=== PATIENT | female | born 1975 | race Caucasian/White ===

== ENCOUNTER → 2020-07-18 | Outpatient (CLI) | payer OTHER ==
--- NOTE | 2020-07-18 11:34 | FL ---
EXAMINATION TYPE: FL barium swallow DATE OF EXAM: 07/18/2020 CLINICAL HISTORY: History of gastroparesis presents with epigastric pain, reflux-like symptoms. Proba ble hiatal hernia. Patient symptoms come and go in severity, patient has been on reflux medication TECHNIQUE: A double contrast esophagram is performed utilizing air and barium. A total of 19 second s of fluoroscopic time was utilized during procedure and 54 images obtained COMPARISON: None FINDINGS: The esophagus shows normal motility and emptying into the stomach. No diverticulum. No intr aluminal mass. Small sliding-type hiatal hernia noted towards end of study. No fixed diverticulum. No stricture. No significant gastroesophageal reflux was seen during real time performance of this stud y. IMPRESSION: Small sliding-type hiatal hernia otherwise unremarkable study.
== END | disposition home or self-care (01) ==
LOC: RADUSWWP 10:51
PROVIDERS: ATTEND Surgery Plastic and Reconstructive Surgery
DX: K44.9 Diaphragmatic hernia without obstruction or gangrene (principal)
CPT/HCPCS: 74220

== ENCOUNTER → 2020-08-07 | Outpatient (CLI) | payer OTHER ==
--- NOTE | 2020-08-07 12:26 | NM ---
EXAMINATION TYPE: NM gastric emptying static DATE OF EXAM: 08/07/2020 COMPARISON: NONE HISTORY: Gastroparesis per order. Diminished appetite with abdominal pain heartburn reflux and nausea per patient. History of hiatal hernia. Following administration of 2.0 mCi Tc 99m Sulfur Colloid with 4 OUNCES OF EGGS, 1/2 PIECE OF TOAST W ITH BUTTER, 6 OUNCES ICE WATER, projection images of the abdomen were obtained 6 minutes post ingesti on. Patient Emptying Values 1 Hour 40 % 2 Hours 76 % 3 Hours 93 % 4 Hours 100 % Gastroesophageal reflux: None on images saved. T1/2 = 74 minutes. Normal range. IMPRESSION: Gastric emptying: No scintigraphic evidence for gastroparesis. Gastric emptying normal percentage values: 30 minutes: <70% of retention (> 30% emptying) suggests abnormally fast emptying. 60 minutes: <90% retention (>10% emptying) is normal; less than 30% retention (>70% emptying) suggest s abnormally rapid emptying. 90 minutes: <65% retention (> 35% emptying) is normal. 120 minutes: <60% retention (> 40% emptying) is normal. 180 minutes: <30% retention (> 70% emptying) is normal. Gastric emptying T-1/2: Solid: The normal range is 60-105 minutes Liquid only: Normal range is 10-45 minutes. Liquid only-children: At 60 minutes, normal range is 44-58 % . Liquid only-infants: At 60 minutes, normal range is 32-64 %. Additional references: Gastric Emptying Scintigraphy [email or web address]://[email or web address]
== END | disposition home or self-care (01) ==
LOC: RADNMMAIN 06:53
PROVIDERS: ATTEND Surgery Plastic and Reconstructive Surgery
DX: K31.84 Gastroparesis (principal)
CPT/HCPCS: 78264; A9541

== ENCOUNTER → 2020-10-30 | Outpatient (CLI) | payer OTHER ==
[2020-10-30 15:37] VITALS: BP 130/79; PULSE 65; RESP 18; TEMP 98.1; BMI 37.4
--- NOTE | 2020-10-30 15:45 | P.PN ---
Subjective Progress Note Date: 10/30/20 DATE OF SERVICE: 10/30/2020 REASON FOR CONSULTATION: Initial bariatric evaluation. HISTORY OF PRESENT ILLNESS: Soumya Noonan is a 45-year-old female who comes with lifelong morbid obesity. She reports long standing history of severe gastroesophageal reflux disease uncontrolled with medications. She has developed comorbidities including [id number] diabetes type 2 as well as gastroparesis. She reports hypertensive heart disease long-standing over 5+ years. She has tried multiple attempts of weight loss unsuccessfully. She presents today for evaluation of gastric bypass for management of her morbid obesity including severe gastroesophageal reflux disease. She presents in consultation to the bariatric center. At height of 5 feet 6 inches, her ideal body weight is 154 pounds. She comes in 232 pounds. Her body mass index is 37.4. She is 78 pounds overweight. PAST MEDICAL HISTORY: 1. Morbid obesity due to excess calories 2. Body mass index of 37.4 3. Chronic obstructive pulmonary disease with asthma 4. Hyperlipidemia 5. Diabetes type 2, [id number] 6. Gastroparesis 7. Hypertensive heart disease 8. Osteoarthritis lower back 9. Irritable bowel syndrome 10. Gastroesophageal reflux disease PAST SURGICAL HISTORY: 1. Adenoidectomy 2. Appendectomy 3. Cholecystectomy 4. Hysterectomy 5. Tonsillectomy 6. Right knee surgery 2 7. Left knee surgery 4 8. Thyroid biopsy 9. Right hand carpal tunnel surgery HOME MEDICATIONS: Home Medications Medication Instructions Recorded Confirmed Albuterol Sulfate 2.5 mg INHALATION Q6H 10/30/20 10/30/20 Albuterol Sulfate [Proair Hfa] 1 - 2 puff INHALATION Q6HR PRN 10/30/20 10/30/20 Atorvastatin [Lipitor] 10 mg PO DAILY 10/30/20 10/30/20 Azelastine HCl 137 mcg NS BID 10/30/20 10/30/20 Benzonatate [Tessalon Perles] 100 mg PO TID PRN 10/30/20 10/30/20 Budesonide-Formot 160-4.5 Mcg 2 puff INHALATION BID 10/30/20 10/30/20 [Symbicort 160-4.5 Mcg Inhaler] Cyclobenzaprine [Flexeril] 5 mg PO TID PRN 10/30/20 10/30/20 Dicyclomine [Bentyl] 20 mg PO QID PRN 10/30/20 10/30/20 Ertugliflozin/Metformin 1 each PO BID 10/30/20 10/30/20 [Segluromet 2.5-500 mg Tablet] Famotidine [Pepcid] 20 mg PO BID 10/30/20 10/30/20 Ibuprofen [Motrin] 600 mg PO Q6HR PRN 10/30/20 10/30/20 Lidocaine 5% Patch [Lidoderm] 1 patch TOPICAL DAILY 10/30/20 10/30/20 Methocarbamol [Robaxin-750] 750 mg PO TID 10/30/20 10/30/20 Omeprazole 20 mg PO BID 10/30/20 10/30/20 Ondansetron Odt [Zofran Odt] 8 mg PO Q8HR PRN 10/30/20 10/30/20 Promethazine Suppository 25 mg RECTAL DAILY 10/30/20 10/30/20 [Phenergan] glipiZIDE [Glucotrol XL] 20 mg PO DAILY 10/30/20 10/30/20 lisinopriL [Zestril] 2.5 mg PO DAILY 10/30/20 10/30/20 metFORMIN HCL [metFORMIN HCL ER] 500 mg PO BID 10/30/20 10/30/20 predniSONE 20 mg PO BID 10/30/20 10/30/20 predniSONE [Deltasone] 20 mg PO DAILY 10/30/20 10/30/20 sitaGLIPtin [Januvia] 100 mg PO DAILY 10/30/20 10/30/20 ALLERGIES: Allergies Allergy/AdvReac Type Severity Reaction Status Date / Time sulfamethoxazole Allergy Rash/Hives Verified 10/30/20 15:24 [From Bactrim] trimethoprim [From Bactrim] Allergy Rash/Hives Verified 10/30/20 15:24 SOCIAL HISTORY: Has current tobacco use FAMILY HISTORY: No family history of ulcerative colitis disease or Crohn's disease. Family history of morbid obesity. No lupus in the family. No reports of stomach or esophageal cancer. REVIEW OF ORGAN SYSTEMS: CONSTITUTIONAL: No fevers or chills. At height of 5 feet 6 inches, her ideal body weight is 154 pounds. She comes in 232 pounds. Her body mass index is 37.4. She is 78 pounds overweight. HEENT: Denies any active troubles with vision or hearing. Has troubles with swallowing. ENDOCRINE: Has diabetes type 2. No hypothyroidism. Has chronic steroid use. CARDIOVASCULAR: Has hyperlipidemia. Has hypertensive heart disease. RESPIRATORY: Has asthma. Has chronic obstructive pulmonary disease. GASTROINTESTINAL: Denies any bright red blood per rectum. No diarrhea. No constipation. Has gastroesophageal reflux disease. Reports irritable bowel syndrome. Has chronic nausea. GENITOURINARY: Denies bladder urgency. No recent blood in urine MUSCULOSKELETAL: Has lower back pain and joint pain. NEURO: No headaches. No seizure disorders. PSYCH: Denies depression. No suicidal ideation. RHEUMATOLOGIC: No lupus. No rheumatoid arthritis. HEMATOLOGIC: Denies any abnormal bleeding or bruising. SKIN: No rash. No skin cancer. PHYSICAL EXAM: VITAL SIGNS: Height 5 foot 6 inches, weight 232 pounds. BMI 37.4 Vital Signs Temp 98.1 F 10/30/20 15:22 Pulse 65 10/30/20 15:22 Resp 18 10/30/20 15:22 BP 130/79 10/30/20 15:22 Pulse Ox GENERAL: Well-developed in no acute distress. HEENT: No scleral icterus. Extraocular movements grossly intact. Hears conversational speech. No nasal drainage. NECK: Supple without lymphadenopathy. CHEST: Nonlabored respirations with equal bilateral excursions. CARDIOVASCULAR: Regular rate and regular rhythm. Distal 2+ pulses. ABDOMEN: Obese, soft, nontender, nondistended. MUSCULOSKELETAL: No clubbing, cyanosis. NEURO: No focal or lateralizing signs. Cranial nerves 2 through 12 grossly within normal limits. PSYCH: Appropriate affect. Alert and oriented to person, place and time. SKIN: Good skin turgor. Well perfused. STUDIES: Esophagram independently reviewed demonstrates no tertiary contractions or presbyesophagus. This is my independent interpretation. REPORT: Esophagram demonstrates small sliding hiatal hernia. Nuclear gastric emptying study demonstrates no evidence of gastroparesis. 100% empty of the stomach identified. ASSESSMENT: 1. Morbid obesity due to excess calories 2. Body mass index of 37.4 3. Chronic obstructive pulmonary disease with asthma 4. Hyperlipidemia 5. Diabetes type 2, [id number] 6. Gastroparesis 7. Hypertensive heart disease 8. Osteoarthritis lower back 9. Irritable bowel syndrome 10. Gastroesophageal reflux disease 11. Tobacco abuse disorder PLAN: 1. Surgical options including a band, gastric bypass, sleeve gastrectomy were described. For the severity of her gastroesophageal reflux disease, gastric bypass was described. 2. The [place] bariatric surgical collaborative data and outcomes calculator were described with surgical options. 3. Recommend a bariatric metabolic panel to evaluate for micro- including macronutrient deficiencies. 4. For history of daytime somnolence, recommend evaluation and treatment for sleep apnea. 5. Dietary surveillance and counseling was reviewed. Increased protein intake over 65 grams daily advised. 6. Will need cardiac risk assessment. 7. Recommend medical risk assessment. 8. Psych assessment per insurance guidelines. 9. Recommend 12-lead EKG. 10. Recommend urine nicotine testing for history of tobacco abuse disorder 11. Recommend urine drug screen 12. She has completed 4 months medical supervised weight loss, recommend completion of at least 6 months medical supervised weight loss. Thank you for this consultation. Objective - Vital Signs Vital signs: Vital Signs Temp 98.1 F 10/30/20 15:22 Pulse 65 10/30/20 15:22 Resp 18 10/30/20 15:22 BP 130/79 10/30/20 15:22 Pulse Ox Intake & Output 10/29/20 10/30/20 10/30/20 18:59 06:59 18:59 Weight 105.233 kg
== END ==
LOC: BARWHC3 14:33
PROVIDERS: ATTEND Surgery Plastic and Reconstructive Surgery
DX: E66.01 Morbid (severe) obesity due to excess calories (principal); J44.9 Chronic obstructive pulmonary disease, unspecified; E78.5 Hyperlipidemia, unspecified; I11.9 Hypertensive heart disease without heart failure; K21.9 Gastro-esophageal reflux disease without esophagitis; K31.84 Gastroparesis; K58.9 Irritable bowel syndrome, unspecified; M47.9 Spondylosis, unspecified; Z68.37 Body mass index [BMI] 37.0-37.9, adult; Z72.0 Tobacco use; Z79.84 Long term (current) use of oral hypoglycemic drugs; E11.43 Type 2 diabetes mellitus with diabetic autonomic (poly)neuropathy; Z79.1 Long term (current) use of non-steroidal anti-inflammatories (NSAID)
CPT/HCPCS: 99211

== ENCOUNTER → 2024-01-10 | Outpatient (CLI) | payer OTHER ==
[2024-01-10 10:58] VITALS: BP 139/66; PULSE 65; RESP 16
--- NOTE | 2024-01-10 15:03 | P.PAINPG ---
PQRS Measure Charge Sheet Comment: HISTORY OF PRESENT ILLNESS: A 48 yr old female w father at side as a referral from Dr Vigil presents today w severe and chronic LBP > 6 mo secondary to DDD, spondylosis and facet arthropathy without myelopathy for evaluation. Pt states pain level is provoked at 9 /10 in intensity, constant, localized in the lower lumbar spine, predominantly axial, burning in character w occasional shooting pain towards the back of the LEs. Pain is provoked by over activity. Pain is alleviated by massage therapy semi weekly x 6 wks in Fall 2022, physician guided home exercises/ stretches daily times weekly since Fall 2022, heat, ice, medications (Tramadol), Bupropion patch topical, repositioning and rest . Oswestry axial pain score at 29. PMH: OA, HTN, Hyperlipidemia, IDDM II, GERD, Asthma PSH: Bariatric Surgery SH: + tobacco use, No ETOH abuse, Cannabis use FH: Non contributory All: See list Meds: See list REVIEW OF ORGAN SYSTEMS: CONSTITUTIONAL: No fevers or chills. No recent weight loss. NEUROLOGICAL: + numbness and tingling along the distal extremities. No seizure disorders or headaches. MUSCULOSKELETAL: + pain PSYCHIATRIC: Denies current depression or suicidal thoughts. Physical Examinations : Constitutional : Cooperative , not in acute distress . Neurologic : Cranial nerve II to XII intact. No focal neurological deficits. Psychiatric : alert & oriented x 3. Matching mood & appropriate affect. Judgment & insight intact. Musculoskeletal : Cervical Spine Motor strength in the deltoid and biceps: Normal right side. Normal Left side Motor strength biceps and the wrist extensors: Normal right side . Normal left side Motor strength in the triceps muscle: Normal right side. Normal left side Deep tendon reflexes: Normal at the biceps. Normal at Brachioradialis. Normal at triceps Vertebral body tenderness to deep palpation over Cervical facet loading test: positive bilaterally Spurling test: positive bilaterally Neck distraction test: positive bilaterally Beni sign: positive bilaterally Lumbar spine Motor strength lower extremities ,thigh and legs 5/5 Right side , 5/5 Left side Deep tendon reflexes : Normal Knee Jerk. Normal Ankle Jerk Vertebral body tenderness over Soto Test positive Lumbar facet Loading Test: positive Right / positive Left Range of motion of the lumbar spine Flexion 30 degrees, extension 10 degrees Straight Leg Raise test: Left/ Right positive at degrees Jaren test: positive right / positive left. Severe tenderness over the Sacroiliac joint on the Right / Left sides Gaenslen test: positive bilaterally Seated flexion test: positive bilaterally. Sacral spine : Severe tenderness over the Sacroiliac joint: right side / left side Range of motion: Flexion of the lumbar spine <60 degrees Range of motion: Extension of the lumbar spine <20 degrees Gaenslen's Test positive Jaren test: positive right side / left side Thigh Thrust Test Sacral Thrust Test Imaging: MRI non contrast of the lumbar spine from 04/12/23 reviewed Assessment/ Plan : Lumbar DDD Recommendation of L TFESI L5-S1 #1. Pt stated she will not have an Epidural as long as it involves steroid. This clinic does not use non- steroidal epidural injections. She may follow up w Dr Vigil to explore additional treatment options. All questions answered. I have spent greater than 30 minutes on patient care today. Dr Robles was available by phone for the evaluation of this patient. The time was used to review the medical records including relevant urine studies and Prescription history (MAPs), review of the available imaging, evaluation and examination of the patient, coordination of care with the medical staff and if applicable referring physicians, as well as creation of the medical record Home Medications: Ambulatory Orders Albuterol Sulfate 2.5 mg INHALATION Q6H 10/30/20 Albuterol Sulfate [Proair Hfa] 1 - 2 puff INHALATION Q6HR PRN 10/30/20 Atorvastatin [Lipitor] 10 mg PO DAILY 10/30/20 Azelastine HCl [Astelin Nasal [place]] 137 mcg NS BID 10/30/20 Benzonatate [Tessalon Perles] 100 mg PO TID PRN 10/30/20 Budesonide-Formot 160-4.5 Mcg [Symbicort 160-4.5 Mcg Inhaler] 2 puff INHALATION BID 10/30/20 Cyclobenzaprine [Flexeril] 5 mg PO TID PRN 10/30/20 Dicyclomine [Bentyl] 20 mg PO QID PRN 10/30/20 Ertugliflozin/Metformin [Segluromet 2.5-500 mg Tablet] 1 each PO BID 10/30/20 Famotidine [Pepcid] 20 mg PO BID 10/30/20 Ibuprofen [Motrin] 600 mg PO Q6HR PRN 10/30/20 Lidocaine 5% Patch [Lidoderm] 1 patch TOPICAL DAILY 10/30/20 Omeprazole 20 mg PO BID 10/30/20 Ondansetron Odt [Zofran Odt] 8 mg PO Q8HR PRN 10/30/20 Promethazine Suppository [Phenergan] 25 mg RECTAL DAILY 10/30/20 glipiZIDE [Glucotrol XL] 20 mg PO DAILY 10/30/20 lisinopriL [Zestril] 2.5 mg PO DAILY 10/30/20 metFORMIN HCL [metFORMIN HCL ER] 500 mg PO BID 10/30/20 methocarbamoL [Robaxin-750] 750 mg PO TID 10/30/20 predniSONE 20 mg PO BID 10/30/20 predniSONE [Deltasone] 20 mg PO DAILY 10/30/20 sitaGLIPtin [Januvia] 100 mg PO DAILY 10/30/20 Controlled Substance Measures - Controlled Substance Measures Is patient prescribed a controlled substance at discharge?: No
== END ==
LOC: PNWHC3 10:24
PROVIDERS: ATTEND Specialist
DX: M47.896 Other spondylosis, lumbar region (principal); M46.1 Sacroiliitis, not elsewhere classified; M51.16 Intervertebral disc disorders with radiculopathy, lumbar region; Z72.0 Tobacco use; Z88.2 Allergy status to sulfonamides; Z88.1 Allergy status to other antibiotic agents
CPT/HCPCS: 99211

== ENCOUNTER → 2024-08-24 | Outpatient (CLI) | payer OTHER ==
--- NOTE | 2024-08-24 09:58 | XR ---
EXAMINATION TYPE: XR chest 2V DATE OF EXAM: 08/24/2024 CLINICAL HISTORY: Preoperative clearance TECHNIQUE: Frontal and lateral views of the chest are obtained. COMPARISON: None FINDINGS: There is no focal air space opacity, pleural effusion, or pneumothorax seen. The cardiac silhouette size is within normal limits. The osseous structures are intact. IMPRESSION: No acute cardiopulmonary process. [facility], , 08/24/2024 9:55 AM
== END | disposition home or self-care (01) ==
LOC: RADXRMAIN 09:43
PROVIDERS: ATTEND Family Medicine
DX: Z01.818 Encounter for other preprocedural examination (principal)
CPT/HCPCS: 71046; 86850; 86900; 86901; 87070

== ENCOUNTER 2024-08-31 10:00 | Day surgery (SDC) | payer OTHER ==
[~2024-08-31 10:00] MED LIST: TRANEXAMIC 1,000 MG/100ML-NACL 1,000 MG in SALINE 1 100ML.BAG IVPB PRN
[2024-08-31] MEDS ORDERED: LIDOCAINE 1% (10MG/ML) FOR IV START INTRADERMA PRN (10:29)
[2024-08-31 10:58] LABS: Glucose,Whole Blood 189 mg/dL (70-110)
[2024-08-31] MEDS: IV FLUID CONTINUATION 1,000 ML IV ONE ×3 (11:00→18:00)
[2024-08-31] MEDS: ACETAMINOPHEN TAB 500 MG TAB PO PRN (11:23)
[2024-08-31] MEDS: GABAPENTIN 300 MG CAP PO PRN (11:23)
[2024-08-31] MEDS: ONDANSETRON 4 MG/2 ML VIAL IVP PRN (11:23)
[2024-08-31] MEDS: LACTATED RINGERS 1,000 ML IV SCH (11:24)
[2024-08-31] MEDS: MIDAZOLAM 2 MG/2 ML VIAL IV ONE (11:31)
[2024-08-31] MEDS: SCOPOLAMINE 1 MG/72 HR PATCH TRANSDERM ONE (11:32)
--- NOTE | 2024-08-31 12:29 | P.HPOR ---
History of Present Illness H&P Date: 08/24/24 .D:Date: 08/24/24 : 10:48am .T:Title: PREOP H1 [facility] [address] [place], [place] [address], [place] [address]| PROVIDER: KEMAL IBARRA DO CLINICAL SUMMARY: Ms. Noonan is a 49-year-old female presenting for pre-operative evaluation for planned C4-6 ACDF due to progressive cervical radiculopathy with documented neurological decline. Her symptoms include constant burning neck pain radiating to bilateral upper extremities, severe migraines (20 days/month), and significant sleep disturbances. Physical exam reveals bilateral upper extremity weakness (4/4+), positive Spurling's sign, positive left-sided Simmons's sign, and C4-6 dermatomal sensory changes. MRI demonstrates C4-5 HNP with moderate central and foraminal stenosis, C5-6 HNP with mild to moderate stenosis, and local kyphotic deformity. Conservative management including medications (Pregabalin, Meloxicam), RFA, nerve blocks, Botox injections, and activity modifications have failed to provide sustained relief. Given the progressive nature of symptoms and failure of conservative measures, surgical intervention with C4-6 ACDF is recommended to prevent further neurological deterioration. DEMOGRAPHICS: Age: 49 year Height: 5'7" Weight: 218 lbs BP:120/90 BMI: 34.14 kg/m2 Occupation: Unemployed CC: cervical pain VAS: 5 HISTORY: Ms. Noonan presents to the office today, 08/23/24, for a pre-operative appointment preceding her C4-6 ACDF. Patient states her pain has been getting worse and more frequent since last visit. In the neck patient reports pain down the neck and across thre shoulders into the bilateral upper extremities. She states the pain is a constant burning sensation. She states she has severe migraines 20 days out of the month. Patient is having severe night time sleep disturbances due to her pain and ongoing symptoms. She notes a painful popping sensation from the neck as well. Patient is currently taking Pregabalin and Meloxicam for her symptoms. She ambulates independently. She has tried multiple different treatments for her migraines including shots, botox, medications, blocks none of which have helped her HAs. She has also tried similar for her neck of which does not help her neck or arm pain. She states she continues to have significant pain and debility most days and she seems to have tried everything and is tired of not getting results. * Patient denies any f/c/sob/cp, perineal numbness or tingling, bowel, or bladder incontinence/retention. * The patients past social, medical, family, surgical history, as well as review of systems, have been reviewed. Please refer to the History and Physical form that has been scanned into our electronic medical record system. * 16 points review of systems completed and as stated in HPI, all other systems reviewed are negative. PAST TREATMENTS: PAST TREATMENTS: PAST IMAGING: YES - MRI, CT, XR TRAUMA RELATED: NO - WORK RELATED: NO - PT IN LAST 6 MONTHS: YES - PHYSICIAN DIRECTED HOME EXERCISE PROGRAM: YES - ACTIVITY MODIFICATION: YES - limited BLTPP to 20 lbs. No manager intermediate help. MEDICATIONS: YES, Pregabalin and Meloxicam - ALTERNATIVE INTERVENTIONS (CHIROPRACTIC, ACCUPUNCTURE, MASSAGE, RICE): YES - BRACING: NO - INJECTIONS (ELAINA, TF, RFA): YES -RFA, Blocks, C2 block, Botox. Limited relief. MEDICAL HISTORY: Past Medical History: REVIEWED STATED IN CHART Past Surgical History: REVIEWED STATED IN CHART Social History: REVIEWED STATED IN CHART SMOKING: Never smoker ETOH: None SUBSTANCES: None Family History: REVIEWED STATED IN CHART P1 Current Medications: Rx: albuterol sulfate HFA 90 mcg/actuation aerosol inhaler Ref: 0 Instructions: inhale 2 puffs (180 mcg) by inhalation route every 4-6 hours as needed Rx: buprenorphine 15 mcg/hour weekly transdermal patch Ref: 0 Instructions: apply 1 patch (15 mcg/hour) by transdermal route every 7 days Rx: glipiZIDE 10 mg tablet Ref: 0 Instructions: take 1 tablet (10 mg) by oral route once daily before a meal Rx: hydroCHLOROthiazide 25 mg tablet Ref: 0 Instructions: take 1 tablet (25 mg) by oral route once daily Rx: Nasin Nasal [place] Ref: 0 Rx: omeprazole 20 mg capsule,delayed release Ref: 0 Instructions: take 1 capsule (20 mg) by oral route once daily 30 minutes to 1 hour before a meal Rx: Ozempic Ref: 0 Rx: pravastatin Ref: 0 Rx: pregabalin 75 mg capsule Ref: 0 Rx: Symbicort Ref: 0 Rx: traMADol 50 mg tablet Ref: 0 Instructions: take 1 tablet (50 mg) by oral route every 6 hours as needed Rx: Zonegran Ref: 0 Rx: Fioricet 50 mg-300 mg-40 mg capsule Ref: 0 Instructions: take 1 - 2 capsules by oral route every 4 hours as needed not to exceed 6 capsules per 24hrs P1 PHYSICAL EXAM: General: AOX3, NAD, Well hydrate, well nourished HEENT: No lumps or masses Extremities: No color changes, no pooling INTEGUMENT: Appearance: Normal color and turgor Surgical Incisions: NA Hairy Patches: ABSENT Dorsal Skin Dimples: Normal [employer] spots: ABSENT PALPATION: TTP Midline: NO Paracervical: YES Parathoracic: NO Paralumbar: NO SIJ TESTING: NT POSTURAL BALANCE: Coronal: BALANCED Sagittal: BALANCED Shoulder height: LEVEL Pelvic Girdle: LEVEL ROM AND APPEARANCE: Neck: RESTRICTED Lumbar: RESTRICTED Shoulders: Symmetrical Hips: Symmetrical Knees: Symmetrical Hands: Symmetrical Feet: Symmetrical VASCULAR STATUS: PALPABLE PULSES B/L UE AND LE 2/4 RAD/ULNAR/DP/PT Edema: NONE NEUROLOGICAL EXAMINATION: Mental Status: Awake, alert, fully oriented with normal attention, concentration, and memory. Fluent appropriate speech. CRANIAL NERVES: I: Olfactory not assessed. II: Visual acuity normal, no visual field deficit noted with confrontation. III, IV: Normal pupillary reflexes & intact extraocular movements without nystagmus. V, : Intact symmetrical facial sensation. VII: Intact symmetrical facial motor movement: Hearing intact. IX, X: Intact gag, swallow, & normal voice. XI: Sternocleidomastoid, trapezius function intact. XII: Tongue midline with normal movements. TENSIONING: * L'HERMITTE'S SIG:NEG SPURLUNG'S SIGN:POS CUBITAL TUNNEL COMPRESSION:NEG TINELS AT WRIST:NEG STRAIGH LEG RAISE:NEG CONTRALATERAL STRAIGHT LEG RAISE: NEG MOTOR EXAM (0-5/5, NT) Muscle appearance: Symmetrical, without signs of atrophy or dystrophy UPPER EXTREMITY RIGHT LEFT Shoulder Abduction 4+ 4 Biceps 4+ 4+ Triceps 4 4+ Wrist Extension 4+ 4 Hand Intrinsics 4 4 Cupola Melter 4+ 4 LOWER EXTREMITY RIGHT LEFT Hip Flexion 5 5 Knee Extension 5 5 Knee Flexion 5 5 Dorsiflexion 5 5 Plantarflexion 5 5 EHL 5 5 FHL 5 5 REFLEXES (0-4/2, NT): RIGHT LEFT Bicep 2 2 Brachioradialis 3 3 Triceps 2 3 Patellar 2 2 Achilles 2 2 PATHOLOGICAL REFLEXES: RIGHT LEFT SIMMONS'S ABSENT PRESENT CLONUS ABSENT ABSENT BABINSKI ABSENT ABSENT RECTAL TONE: INTACT/NT SENSATION (0-4, NT): Sensation intact to LT and Pain * C5-T1 distribution BUE * L2-S2 distribution BLE *Exceptions below* DERMATOMAL DEFICIT/RADICULAR PATTERN: C4-6 L>R; BL GAIT AND FUNCTIONAL EVALUATION: AMBULATORY AID NONE ROMBERG'S TEST INTACT HAND AND FINGER DEXTERITY INTACT NO DYSDIADOCHOKINESIA EXAM NEG B/L NO TOE/HEEL WALK INTACT WITH GOOD BALANCE YES SQUAT AND RISE W/O ASSISTANCE TO 60 DEG KNEE FLEXION YES SINGLE LEG STANCE INTACT [place] NEG IMAGING: MRI Date: 04/28/24 Location: [facility] Region: Cervical Contrast: N IMAGES ARE REVIEWED WITH THE PATIENT IN OFFICE AND DEMONSTRATE THE FOLLOWING: FINDINGS: -C4-5 HNP with central stenosis moderate and foraminal stenosis moderate -C5-6 HNP with central and foraminal stenosis mild to moderate -Local kyphosis at these levels due to the disc height collapse from HNP. -No fractures or lesions IMPRESSION: It was my pleasure to have seen and examined Soumya. I reviewed the patient's clinical syndrome, physical findings, and imaging studies during the appointment today. It is my impression that the patient has a diagnosis of. 1.C4-5 HNP 2.C5-6 HNP 3. Upper extremity radiculopathy 4.Upper extremity weakness PLAN: DISCUSSION: -I have discussed treatment options with the patient as well as her imaging and clinical picture. She wishes to proceed as follows: SURGICAL RECOMMENDATION -C4-6 ANTERIOR CERVICAL DISCECTOMY AND FUSION Spine Surgery Risk Review Ms. Noonan is presenting for evaluation of cervical pain. It was my pleasure to have seen and examined Ms. Noonan. In our visit today we have had a chance to go over subjective complaints, physical examination findings and treatments including the natural course his tory without intervention and various interventional options. The patients imaging demonstrates: MRI Date: 04/28/24 Location: [facility] Region: Cervical Contrast: N IMAGES ARE REVIEWED WITH THE PATIENT IN OFFICE AND DEMONSTRATE THE FOLLOWING: FINDINGS: -C4-5 HNP with central stenosis moderate and foraminal stenosis moderate -C5-6 HNP with central and foraminal stenosis mild to moderate -Local kyphosis at these levels due to the disc height collapse from HNP. -No fractures or lesions On physical exam, Ms. Noonan demonstrates: Patient states her pain has been getting worse and more frequent since last visit. In the neck patient reports pain down the neck and across thre shoulders into the bilateral upper extremities. She states the pain is a constant burning sensation. She states she has severe migraines 20 days out of the month. Patient is having severe night time sleep disturbances due to her pain and ongoing symptoms. She notes a painful popping sensation from the neck as well. Patient is currently taking Pregabalin and Meloxicam for her symptoms. She ambulates independently. I have explained to the patient that as their condition progresses it will cause further neurological deficits and eventual paralysis. Based on the patients imaging, physical exam, and the rapid progression and disabling nature of their symptoms, at this time I recommend surgery in the form of a: C4-6 ACDF. I discussed the risk and benefits of this procedure at length with Ms. Noonan. The patient agreed to considered pursuing the procedure abovementioned. Prior to surgery, she should follow up with her PCP (Cardio, ID, IM etc) for clearance. Questions were invited and answered, and the patient wishes to proceed as outlined below. Currently, I am recommendin.-C4-6 ANTERIOR CERVICAL DISCECTOMY AND FUSIO 2.Follow up with PCP for surgical clearance 3.Review of surgical risks and benefits as well as an educational packet on the proposed surgical procedure. Risks: All surgical procedures come with inherent risks, including those related to positioning, anesthesia, intraoperative findings, and postoperative complications. It is important to understand that surgery does not come with any guarantee of a successful outcome as complications and adverse events are always possible. The patient was given a handout in office today discussing the surgical procedure and risks associated with the intervention, both of which were discussed with the patient. These risks include but are not limited to the following: * Experiencing same, different or even worse symptoms in back, neck, arms, or legs compared to before surgery. Requiring further surgery or other forms of treatment presently or at some time in the future at same or other levels of the intended spine surgery. On an extreme but fortunately relatively rare basis severe complication such as blindness, stroke, heart attack, temporary and/or permanent nerve injury, paralysis, coma, or may occur, sometimes without known explanation. Surgical complications may include but are not limited to risk of infection, fluid accumulation in the surgical dissection site, including a seroma or hematoma, that requires additional surgery, wound drainage, bleeding, new numbness or weakness, vision changes/loss, spinal fluid leakage, non-healing and/or infected incision, headaches, difficulty or inability to swallow, hoarseness, hemopneumothorax, pneumothorax, impotence, retrograde ejaculation, vaginal dryness; injury to nerves, spinal cord, blood vessels, lymphatics or other vital organs (i.e., bowel injury, injury to the great vessels); heterotopic bone formation; complications related to the hardware such as screws, rods, cages including misplaced hardware, device failure, instrumentation at the wrong spine level, hardware fracture/breakage, or hardware loosening; vertebral failure of the spinal column above or below the newly placed hardware; retained surgical instrumentations or devices and the need for further surgery. * Medical risks of the planned spine surgery include but are not limited to generalized Infections to the whole body or local areas outside of the surgical site (sepsis), heart attack, bleeding, anaphylaxis, meningitis, seizure, epilepsy, hearing loss, burn aragon, laceration of the head or other areas of the body, bruising, hypersensitivity of the skin, bladder over distension; allergic reaction; shoulder injury related to positioning; fat, blood and air clots to other areas of the body like heart, lungs, brain; failure of internal organs such as lungs, kidneys, liver and excessive bleeding. If blood transfusions are necessary, note that transfusions may cause intolerance reactions such as anaphylaxis or other complex reactions. Despite best efforts, the results of spine surgery might not heal in terms of bone, soft tissues such as skin, fascia, ligaments, and joints. Additionally, in order to achieve best possible results, spine surgery may be carried out beyond the initially planned levels and involve decompression, fusion including insertion of hardware at levels other than the original intended area of surgical interest change some portions of the procedure in order to ensure the best possible outcomes. With spine surgery and spinal fusion, there are different off label uses of in strumentation (devices, implants and hardware) as well as biological substances (bone morphogenic proteins, demineralized bone matrix) as well as using extra bone from allograft sources (i.e. cadaver bone) or autograft (iliac crest bone, ribs, or the spine itself). The patient has been given information about these practices and their inherent risks and benefits. [facility] is an educational center that serves as a training facility for neurosurgical and orthopedic CRISIS SPECIALIST and Nursing students. Physician assistants are medically trained surgical providers who function in the outpatient, inpatient, and operating room setting under the direct supervision of the attending surgeon. [facility] has multiple operating rooms with single and overlapping rooms running daily. They currently function under the required guidelines as produced by the [facility] Finance Committee with regards to the overlapping rooms and will continue to comply with changes to this policy as they occur. The requirements include and are complied with as follows: (1) the critical portions of the overlapping rooms will not occur at the same time, (2) the attending physician will be physically present during the critical portions of the procedure and immediately available during the entire case, and (3) a back-up attending is designated should the primary attending not be immediately available. The patient has had a chance to review all the listed information, has been given print outs detailing this information, and has had all his/her questions answered to their satisfaction. It was my pleasure to have seen and examined Ms. Noonan. In our visit today we have had a chance to go over my understanding of our patient's current condition, the natural course history without intervention and various interventional options. Questions were invited and answered, and the patient wishes to proceed as outlined above. I have seen and examined the patient for 25 minutes and we have spent more than 50% of the time in repeat and detailed counseling about the patient's condition, its natural course history with out and as much as can be predicted with surgery and re-review of various surgical treatment options. In conclusion, Ms. Noonan requested we proceed with the above suggested surgery and are willing to accept risks and limitations of the suggested surgery as nature of the disease process and our best attempts at treatment for the condition. MEDICAL NECESSITY : Surgical intervention with C4-6 anterior cervical discectomy and fusion (ACDF) is medically necessary for Ms. Noonan due to progressive cervical radiculopathy with documented neurological decline despite extensive conservative management. The patient demonstrates objective neurological deficits including bilateral upper extremity weakness (4/4+), positive Spurling's sign, positive left-sided Simmons's sign, and C4-6 dermatomal sensory changes. MRI imaging confirms structural pathology with C4-5 HNP causing moderate central and foraminal stenosis, and C5-6 HNP with mild to moderate stenosis, complicated by local kyphotic deformity. Conservative measures including medications (Pregabalin, Meloxicam), radiofrequency ablation, nerve blocks, Botox injections, and activity modifications have failed to provide sustained relief. The patient's condition significantly impacts her daily functioning, with severe migraines occurring 20 days per month and persistent sleep disturbances due to pain. SURGICAL RATIONALE: A C4-6 anterior cervical discectomy and fusion is indicated for Ms. Noonan due to progressive cervical radiculopathy with documented neurological decline. Her physical examination demonstrates objective findings including bilateral upper extremity weakness (4/4+), C4-6 dermatomal sensory deficits, positive Spurling's sign indicating nerve root compression, and a positive left-sided Simmons's sign suggesting upper motor neuron dysfunction. These clinical findings correlate with MRI imaging which reveals C4-5 HNP with moderate central and foraminal stenosis, and C5-6 HNP with mild to moderate stenosis, further complicated by local kyphotic deformity due to disc height collapse. Despite extensive conservative management including medications (Pregabalin, Meloxicam), radiofrequency ablation, nerve blocks, and Botox injections, the patient continues to experience significant functional impairment. This includes severe migraines occurring 20 days per month, significant sleep disturbances, and constant burning pain in bilateral upper extremities. Her symptoms have progressively worsened, leading to a decline in daily activities. The proposed ACDF procedure aims to decompress the neural elements, restore cervical lordosis, and prevent further neurological deterioration while providing stability to the involved segments. Given the failure of conservative measures and the progressive nature of her symptoms, surgical intervention is deemed appropriate at this time. FOLLOW UP: POST-OP PLAN AT NEXT VISIT: RECHECK PATIENT EDUCATION: Medications Reviewed: YES In our visit today Ms. Noonan and I have had a chance to go over my understanding of the patient's current condition, the natural course history without intervention and various interventional options. Questions were invited and answered, and the patient wishes to proceed as outlined above. I will be sure to keep you updated after Ms. Noonan returns here for further follow-up. Thank you again for your referral. Please do not hesitate to contact me if you have any further questions. Signed and authenticated by: Kemal Amador [facility] [address] [place] [address] . This message is confidential, intended only for the named recipient(s) and may contain information that is privileged or exempt from disclosure under applicable law. If you are not the intended recipient(s), you are notified that the dissemination, distribution or copying of this information is prohibited. If you received this message in error, please notify the sender then delete this message. # SIGNED BY Kemal Ibarra (GOO)08/31/2024 12:29PM Past Medical History Past Medical History: Asthma, COPD, Diabetes Mellitus, GERD/Reflux, H yperlipidemia, Thyroid Disorder Additional Past Medical History / Comment(s): Type 2 DM. enlarged thyroid, History of Any Multi-Drug Resistant Organisms: None Reported Past Surgical History: Adenoidectomy, Appendectomy, Breast Surgery, Cholecystectomy, Hysterectomy, Joint Replacement, Orthopedic Surgery, Tonsillectomy Additional Past Surgical History / Comment(s): 2 RT knee, 4 LT knee surgeries. carpal tunnel sx right hand. thyroid biopsy. mark breast bx total rt knee x2 had surgery for leaking csf from left ear Past Anesthesia/Blood Transfusion Reactions: Postoperative Nausea & Vomiting (PONV) Smoking Status: Current every day smoker - Past Family History Mother Family Medical History: Cancer Additional Family Medical History / Comment(s): moms side of family multiple types Medications and Allergies Home Medications Medication Instructions Recorded Confirmed Type Albuterol Sulfate 2.5 mg INHALATION Q6H 10/30/20 08/31/24 History Azelastine HCl [Astelin Nasal 137 mcg NS BID 10/30/20 08/31/24 History [place]] Budesonide-Formot 160-4.5 Mcg 2 puff INHALATION BID 10/30/20 08/31/24 History [Symbicort 160-4.5 Mcg Inhaler] Famotidine [Pepcid] 20 mg PO BID 10/30/20 08/31/24 History Omeprazole 20 mg PO BID 10/30/20 08/31/24 History glipiZIDE [Glucotrol XL] 10 mg PO BID 10/30/20 08/31/24 History lisinopriL [Zestril] 2.5 mg PO DAILY 10/30/20 08/31/24 History Albuterol Sulfate [Ventolin HFA] 1 - 2 dose INHALATION DIRECTED 08/28/24 08/31/24 History Meloxicam [Mobic] 15 mg PO DAILY 08/28/24 08/31/24 History Pravastatin Sodium [Pravachol] 40 mg PO HS 08/28/24 08/31/24 History Pregabalin [Lyrica] 75 mg PO HS 08/28/24 08/31/24 History Semaglutide [Ozempic] 2 mg SQ MO 08/28/24 08/31/24 History Zonisamide 50 mg PO HS 08/28/24 08/31/24 History hydrOXYzine HCL [Hydroxyzine HCl] 25 mg PO Q4-6H PRN 08/28/24 08/31/24 History tiZANidine [Zanaflex] 4 mg PO HS 08/28/24 08/31/24 History Cholecalciferol (Vitamin D3) 5,000 units .ROUTE DAILY 08/31/24 08/31/24 History [Vitamin D3 (3000 Iu)] Losartan [Cozaar] 25 mg PO DAILY 08/31/24 08/31/24 History SUMAtriptan succinate 100 mg PO QID 08/31/24 08/31/24 History Allergies Allergy/AdvReac Type Severity Reaction Status Date / Time bupropion [From Wellbutrin] Allergy Rash/Hives Verified 08/31/24 10:38 cariprazine [From Vraylar] Allergy Rash/Hives Verified 08/31/24 10:38 sulfamethoxazole Allergy Rash/Hives Verified 08/28/24 09:26 [From Bactrim] trimethoprim [From Bactrim] Allergy Rash/Hives Verified 08/28/24 09:26 Physical Examination Osteopathic Statement: *. No significant issues noted on an osteopathic structural exam other than those noted in the History and Physical/Consult. Results - Labs Labs: Abnormal Lab Results - Last 24 Hours (Table) 08/31/24 Range/Units 10:56 POC Glucose (mg/dL) 189 H (70-110) mg/dL
[2024-08-31] MEDS: THROMBIN (BOVINE) 5,000 UNIT VIAL TOPICAL ONE (13:17)
[2024-08-31] MEDS: LACTATED RINGERS 1,000 ML IV ONE (13:58)
--- NOTE | 2024-08-31 14:43 | XR ---
EXAMINATION TYPE: XR cervical spine limited, FL guidance operating room DATE OF EXAM: 08/31/2024 FLUOROSCOPY 18 sec FL .3226 DAP dose Intraoperative fluoroscopy during ACDF. 3 images are submitted [facility], Workstation: [email or web address], 08/31/2024 2:41 PM
[2024-08-31] MEDS ORDERED: CYCLOBENZAPRINE 5 MG TAB PO PRN ×2 (14:53→18:01)
[2024-08-31] MEDS ORDERED: MAGNESIUM HYDROXIDE 2,400 MG/30 ML CUP PO PRN (14:53)
[2024-08-31] MEDS ORDERED: SENNOSIDES-DOCUSATE SODIUM 1 EACH TAB PO PRN (14:53)
[2024-08-31] MEDS ORDERED: ONDANSETRON 4 MG/2 ML VIAL IVP PRN (14:53)
[2024-08-31] MEDS ORDERED: HYDROcodone/APAP 5-325MG 1 EACH TAB PO PRN (14:53)
--- NOTE | 2024-08-31 14:53 | P.OP ---
Date of Procedure: 08/31/24 Preoperative Diagnosis: 1.C4-5 HNP 2.C5-6 HNP 3. Upper extremity radiculopathy 4.Upper extremity weakness Postoperative Diagnosis: 1.C4-5 HNP 2.C5-6 HNP 3. Upper extremity radiculopathy 4.Upper extremity weakness Procedure(s) Performed: 1. C4-5 ANTERIOR CERVICAL DISCECOMTY AND FUSION 2. C5-6 ANTERIOR CERVICAL DISCECOMTY AND FUSION 3. C4-6 ANTERIOR INSTRUMENTATION 4. C4-5, C5-6 INSERTION OF BIOMECHANICAL DEVICES CAGES x2 USE OF IONM USE OF IO MICROSCOPE Implants: JULIÁN CASCADIA, OZARK 8MM CAGES, 40 MM/14MM MAGNATOS, AUTOGRAFT Anesthesia: RENATAA Surgeon: Lane Vigil Estimated Blood Loss (ml): 20 IV fluids (ml): 1,100 Urine output (ml): 0 Pathology: none sent Condition: stable Disposition: PACU Indications for Procedure: Ms. Noonan is a 49-year-old female presenting for pre-operative evaluation for planned C4-6 ACDF due to progressive cervical radiculopathy with documented neurological decline. Her symptoms include constant burning neck pain radiating to bilateral upper extremities, severe migraines (20 days/month), and significant sleep disturbances. Physical exam reveals bilateral upper extremity weakness (4/4+), positive Spurling's sign, positive left-sided Smith's sign, and C4-6 dermatomal sensory changes. MRI demonstrates C4-5 HNP with moderate central and foraminal stenosis, C5-6 HNP with mild to moderate stenosis, and local kyphotic deformity. Conservative management including medications (Pregabalin, Meloxicam), RFA, nerve blocks, Botox injections, and activity modifications have failed to provide sustained relief. Given the progressive nature of symptoms and failure of conservative measures, surgical intervention with C4-6 ACDF is recommended to prevent further neurological deterioration. Description of Procedure: C4-6 ACDF The patient was seen and examined in the preoperative area. All preoperative protocols were followed. Informed consent was obtained, risks and benefits of the procedure were discussed at length. Risks including bleeding infection damage to the surrounding tissue and risk of reoperation were discussed with the patient. Risk of anesthesia up to and including was discussed with the patient. These are outlined in the risk review. They were willing to accept these risks and all the risks of surgery. The patient was given a weight-based dose of antibiotics in the form of 2 g Ancef. The patient was seen and evaluated by the anesthesia team who deemed them fit for surgery. The site was marked, the patient was willing to proceed with the procedure. The patient was transferred to the operative suite by the Department of anesthesia. They were then drifted off to sleep by the department anesthesia and GETA was performed. The patient tolerated this well. Vicente catheter was placed by nursing staff, a-traumatically. Once confirmation of lines and ventilation the patient was transferred to a Supine Vickey table very care fully. All bony prominences including wrists, elbows, axilla, chest, hips, and thighs, and feet were padded very well. Special attention was paid to the genitalia, and these were padded accordingly. SCDs were placed on bilateral lower extremities and were connected. Arms were well padded and placed at their side thumbs up. Once in position, again we confirmed good ventilation capabilities and that lines were running appropriately. The patients Cervical spine was then exposed. 1010s were placed outlining the incision site. Standard alcohol was used to clean the incision site and allowed to dry. C-arm was used to bio-juan the patient and confirm level for incision which was marked with a skin marker. Operative briefing was performed with all teams and everyone in agreement to proceed. The patient was then prepped and draped in a normal sterile fashion. Timeout was then performed, and all parties agreed with the procedure to be performed. Transverse skin incision was then made on the right side of the patient's neck 3 cm and dissection taken down to the platysma which was split transversely. Sub platysma flap was made, and an interval identified between SCM and medial str uctures. Omohyoid was visualized and protected. Blunt dissection taken down to the anterior cervical fascia which was identified. Blunt probe was then placed and lateral image taken which confirmed levels for operation. These levels were then marked with a bovi. Subperiosteal dissection of the longissimus muscles were then done over these levels identifying uncovertebral joints bilaterally. Retractor was then placed deep to these muscles and held in place with a bed arm. Starting at C5-6, Grimsley pins were placed into C5 and C6 and gentle distraction taken out over the levels. Diana rongeur used to remove disc material. Operating microscope brought in for visualization. Complete discectomy performed at this level with curette, rongeur and pituitary. High speed elif used to remove osteophytes anteriorly and posteriorly until PLL was identified. 6-0 up curette then used to identify the canal and resect the PLL. 2-0 and 3-0 Kerrison used then to remove PLL and disc herniation and performed b/l foraminotomies. Once good decompression was accomplished, meticulous hemostasis was performed. Sizers were then placed under lateral fluoroscopy until the desired height and lordosis. Cage was then selected, packed with autograft and allograft and placed under lateral imaging. Once in good position it was tested and stable. Motors run before and after cage placement were stable. The wound was irrigated, and autograft placed lateral to the cage anteriorly for fusion. Grimsley pin was then removed from C6 and placed into C4. Gentle distraction taken out over C4-5 now. Complete discectomy done at C4-5 as described including decompression, b/l foraminotomies and PLL resection. Burring of endplates was minimal, osteophytes removed as described. Spacers were then sized and placed under lateral imaging. Cage selected, packed with graft and placed under lateral images. Once in position, meticulous hemostasis performed, and motors remained stable before and after cage placement. AP image confirmed good placement of cages. Wound was irrigated. A separate, non-integrated plate was then selected and sized under lateral image. The plate was then placed with screws. Fixed screws drilled into C6 b/l and screws placed. Then into C5 and finally C4 with variable screws. All locking mechanisms were set, and all screws had good purchase. Final AP and lat eral images taken confirmed good placement of hardware and good reduction and presybeterian of height. The wound was then irrigated copiously with NSS. Surgicel placed deep in the wound. A deep drain placed out a separate incision and sewed into place. Layered closure then performed with 3-0 Vicryl in the platysma and subQ tissue. 4-0 Strata fix in the subcuticular tissue. The wound was then cleaned, and dried and skin glue placed. Once glue dried an Opifoam was placed. The patient was then transferred back to their hospital bed a-traumatically. The drain continued to hold suction. They were placed in a soft collar. They were then awakened by the department of anesthesia having tolerated the procedure well without complications.
[2024-08-31] MEDS: HYDROmorphone 0.5 MG/0.5 ML SYRINGE IVP PRN (15:00)
[2024-08-31] MEDS: hydrALAZINE HCL 20 MG/ML 1 ML VIAL IVP STA (15:22)
[2024-08-31] MEDS: HYDROmorphone 0.5 MG/0.5 ML SYRINGE IVP ONE (17:50)
[2024-08-31] MEDS ORDERED: HYDROmorphone 0.5 MG/0.5 ML SYRINGE IVP PRN (18:00)
[2024-08-31 18:36] LABS: Glucose,Whole Blood 191 mg/dL (70-110)
[2024-08-31] MEDS: ACETAMINOPHEN TAB 325 MG TAB PO SCH (20:29)
[2024-08-31 20:41] LABS: Glucose,Whole Blood 182 mg/dL (70-110)
[2024-08-31] MEDS: HYDROcodone/APAP 10-325MG 1 EACH TAB PO PRN (21:09)
[2024-08-31] MEDS: PREGABALIN 75 MG CAP PO SCH (21:46)
[2024-08-31] MEDS: glipiZIDE 10 MG TAB PO SCH (21:46)
[2024-09-01 03:10] VITALS: TEMP 98.2
[2024-09-01 06:29] LABS: Glucose,Whole Blood 102 mg/dL (70-110)
[2024-09-01] MEDS: DEXAMETHASONE SOD PHOSPHATE 10 MG/ML 1 ML VIAL IV ONE (08:05)
[2024-09-01] MEDS: PANTOPRAZOLE 40 MG TABLET PO SCH (08:06)
[2024-09-01 08:07] VITALS: BP 149/79; PULSE 74; RESP 17
--- NOTE | 2024-09-01 08:40 | P.PN ---
Subjective Progress Note Date: 09/01/24 Principal diagnosis: 1.C4-5 HNP 2.C5-6 HNP 3. Upper extremity radiculopathy 4.Upper extremity weakness Patient seen and examined this morning. Patient is sitting upright in bed. Patient states that she decided to stay overnight for pain control due to median nerve pain radiating from her shoulders into her thumbs. She does report that her pain is much more improved this morning. She does continue to have moderate sensitivity to touch of the right median nerve near her right thumb. Informed patient that Dr. Vigil has ordered a dose of IV steroid this morning that should help improve her symptoms. Surgical incision to her anterior cervical spine, dressing is CDI. Soft cervical collar is intact. Discharge instructions have been reviewed. No acute concerns. Objective - Vital Signs Vital signs: Vital Signs Temp 98.2 F 09/01/24 00:57 Pulse 72 09/01/24 00:57 Resp 14 09/01/24 00:57 BP 137/79 09/01/24 00:57 Pulse Ox 97 09/01/24 00:57 FiO2 Intake & Output 08/31/24 09/01/24 09/01/24 18:59 06:59 18:59 Intake Total 2950 Output Total 20 Balance 2930 Weight 96.3 kg Intake: IV 2950 Output: Estimated Blood Loss 20 Other: Voiding Method Toilet # Voids 1 - Exam Physical Examination General: The patient is awake and alert, in no acute distress Skin: Skin is warm and dry with no obvious rashes or lesions. Surgical incision to the anterior cervical spine, dressing is clean dry and intact with soft cervical collar in place. Eye: Pupils are equal, round and reactive to light, extra-ocular movements are intact; there is normal conjunctiva bilaterally. Neck: The neck is supple, there is mild tenderness near the incision site, limited range of motion due to surgical intervention and soft cervical collar in place. Cardiovascular: There is a regular rate and rhythm. No murmur, rub or gallop is appreciated. Respiratory: Respirations are non-labored, breath sounds are equal. Gastrointestinal: Soft, non-distended, non-tender abdomen. Back: There is no tenderness to palpation in the midline, paralumbar, parathoracic or buttocks region. There is no obvious deformity . Musculoskeletal: ROM limited secondary to pain and stiffness from surgical procedure. Right: Shoulder abduction 4/5, elbow flexors 4/5, wrist dorsiflexors 4/5. finger abductor 4/5, lens cutter 4/5, hip flexor 5/5, knee flexor 5/5, ankle dorsiflexor 5/5, ankle plantarflexion 5/5 and extensor hallucis 5/5. Left: Shoulder abduction 4/5, elbow flexors 4/5, wrist dorsiflexors 4/5. finger abductor 4+/5, lens cutter 4+/5, hip flexor 4-/5, knee flexor 4/5, ankle dorsiflexor 5/5, ankle plantarflexion 5/5 and extensor hallucis 5/5. Neurological: CN 2-12 intact. There are no obvious motor or sensory deficits. Movement and coordination equal and intact. Sensory exam to light touch intact C5-T1 and intact from L2-S1. Reflexes 2/4 in bilateral upper and lower extremities. Negative Hoffmans, babinski, and clonus signs. Psychiatric: Cooperative, appropriate mood & affect, normal judgment. - Labs Labs: Abnormal Lab Results - Last 24 Hours (Table) 08/31/24 08/31/24 08/31/24 Range/Units 10:56 18:20 20:38 POC Glucose (mg/dL) 189 H 191 H 182 H (70-110) mg/dL Assessment and Plan Assessment: Postop day 1: C4-C6 ACDF Plan: -Appreciate process improvement consultant and team management. -Activity: Ambulate QID, OOB all meals, up and about, limit lifting bending twisting to less than 5 lbs. Use walker or cane if needed for stability. -Daily PT/OT, increase ambulation strength and balance. -Soft Cervical collar when up and about, not needed in bed or chair -Pain control: Adequate at this time -Meds: reviewed -GI ppx: senna -DVT PPX: Aspirin 81mg daily -Hygiene: Maintain incision clean and dry. May change dressing as needed, please document in notes if performed. -Encourage IS 10x/hr -Dispo: Anticipate discharge home today. *I reviewed and discussed this case with my attending Dr. Vigil, whom has reviewed this chart and films and is in agreement with assessment and plan of care as outlined above. I have personally seen and examined the patient, performed the documentation and the assessment and plan as written. Number of minutes spent on the visit: 20m.
--- NOTE | 2024-09-01 08:44 | P.DS ---
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 They underwent appropriate preoperative care and were willing to undergo the intended procedure. They underwent a successful C4-C6 ACDF, were recovered appropriately and sent to the floor. While on the floor they worked with physical therapy, occupational therapy and nursing to enhance their recove ry experience. Their pain was well controlled through their stay and they were started on appropriate medications, DVT ppx modalities, activity and dietary needs. Daily labs were monitored closely, and transfusions were only used when necessary. Medicine as well as other consulting services have made their input and have helped with our team approach and multidisciplinary care. PT milestones have been met and passed and they have made the recommendation of home for this patient and treating providers agree with this care path. The patient will be discharged home with appropriate medications, instructions and follow-up information and in stable condition. Patient Condition at Discharge: Good Plan - Discharge Summary Discharge Rx Participant: No New Discharge Prescriptions: New tiZANidine [Zanaflex] 4 mg PO Q8HR PRN #21 tab PRN Reason: Spasms Naproxen 500 mg PO BID #28 tab cefaDROXiL [Duricef] 500 mg PO Q12HR 5 Days #10 cap HYDROcodone/APAP 7.5-325MG [Dewitt 7.5] 1 each PO Q6HR PRN #28 tab PRN Reason: Pain Sennosides/Docusate Sodium [Senna Plus 8.6-50 mg Softgel] 1 each PO DAILY #20 capsule No Action Albuterol Sulfate 2.5 mg INHALATION Q6H Budesonide-Formot 160-4.5 Mcg [Symbicort 160-4.5 Mcg Inhaler] 2 puff INHALATION BID Pravastatin Sodium [Pravachol] 40 mg PO HS tiZANidine [Zanaflex] 4 mg PO HS hydrOXYzine HCL [Hydroxyzine HCl] 25 mg PO Q4-6H PRN PRN Reason: Anxiety Pregabalin [Lyrica] 75 mg PO HS Meloxicam [Mobic] 15 mg PO DAILY Albuterol Sulfate [Ventolin HFA] 1 - 2 dose INHALATION DIRECTED Losartan [Cozaar] 25 mg PO DAILY SUMAtriptan succinate 100 mg PO QID lisinopriL [Zestril] 2.5 mg PO DAILY glipiZIDE [Glucotrol XL] 10 mg PO BID Famotidine [Pepcid] 20 mg PO BID Azelastine HCl [Astelin Nasal [place]] 137 mcg NS BID Omeprazole 20 mg PO BID Zonisamide 50 mg PO HS Semaglutide [Ozempic] 2 mg SQ MO Cholecalciferol (Vitamin D3) [Vitamin D3 (3000 Iu)] 5,000 units .ROUTE DAILY Discharge Medication List Albuterol Sulfate 2.5 mg INHALATION Q6H 10/30/20 [History] Azelastine HCl [Astelin Nasal [place]] 137 mcg NS BID 10/30/20 [History] Budesonide-Formot 160-4.5 Mcg [Symbicort 160-4.5 Mcg Inhaler] 2 puff INHALATION BID 10/30/20 [History] Famotidine [Pepcid] 20 mg PO BID 10/30/20 [History] Omeprazole 20 mg PO BID 10/30/20 [History] glipiZIDE [Glucotrol XL] 10 mg PO BID 10/30/20 [History] lisinopriL [Zestril] 2.5 mg PO DAILY 10/30/20 [History] Albuterol Sulfate [Ventolin HFA] 1 - 2 dose INHALATION DIRECTED 08/28/24 [History] Meloxicam [Mobic] 15 mg PO DAILY 08/28/24 [History] Pravastatin Sodium [Pravachol] 40 mg PO HS 08/28/24 [History] Pregabalin [Lyrica] 75 mg PO HS 08/28/24 [History] Semaglutide [Ozempic] 2 mg SQ MO 08/28/24 [History] Zonisamide 50 mg PO HS 08/28/24 [History] hydrOXYzine HCL [Hydroxyzine HCl] 25 mg PO Q4-6H PRN 08/28/24 [History] tiZANidine [Zanaflex] 4 mg PO HS 08/28/24 [History] Cholecalciferol (Vitamin D3) [Vitamin D3 (3000 Iu)] 5,000 units .ROUTE DAILY 08/31/24 [History] HYDROcodone/APAP 7.5-325MG [Dewitt 7.5] 1 each PO Q6HR PRN #28 tab 08/31/24 [Rx] Losartan [Cozaar] 25 mg PO DAILY 08/31/24 [History] SUMAtriptan succinate 100 mg PO QID 08/31/24 [History] Sennosides/Docusate Sodium [Senna Plus 8.6-50 mg Softgel] 1 each PO DAILY #20 capsule 08/31/24 [Rx] cefaDROXiL [Duricef] 500 mg PO Q12HR 5 Days #10 cap 08/31/24 [Rx] tiZANidine [Zanaflex] 4 mg PO Q8HR PRN #21 tab 08/31/24 [Rx] Naproxen 500 mg PO BID #28 tab 09/01/24 [Rx] Follow up Appointment(s)/Referral(s): Lane Vigil DO [Doctor of Osteopathic Medicine] - 2 Weeks Activity/Diet/Wound Care/Special Instructions: Spine Discharge and Recovery Instructions Date of Surgery: 08/31/2024 Diagnosis: 1.C4-5 HNP 2.C5-6 HNP 3. Upper extremity radiculopathy 4.Upper extremity weakness Procedure: C4-C6 anterior cervical discectomy and fusion Medications: See medication list All medication refills should be obtained through your primary care doctor or your clinic spine surgeon. Please discuss prescription refills at your follow up appointment. Do not call the hospital for medication refills. Dressing: Leave your dressing in place for a total of 5 days post operatively. Then you may remove your dressing and leave open to air. Keep the area clean and if not able to keep area clean, then cover with sterile gauze and tape. Showering: You may shower 3 days after your procedure allowing soap and water to run over incision. Do not scrub. Do not soak. Blot dry. Follow up: Please confirm a follow up appointment with your surgeon 3 weeks post operatively. Please make an appointment to follow up with your PCP in 1-2 weeks after surgery for evaluation '3 phase, 3-week plan' POST OP WEEKS 1-3 1. Lifting/carrying/pushing/pulling limited to less than 5 pounds. 2. Do not sit for longer than 15 minutes at one time. Get up and walk around. Prolonged sitting is NOT advised. If you lay down, see if you can tolerate laying down on you front (belly side) 3. Walk for periods of 15 minutes = 1 mile but no longer; do it multiple times times each day. 4. Ice your low back after activity. POST OP WEEKS 3-6 1. Lifting limited to less than 20 pounds. 2. Do not sit for longer than 30 minutes at a time. Frequently change positions. Use a sit-to stand workstation or take frequent breaks from sitting if you have returned to work. 3. Walk for 30 minutes each day. If possible, do these three or more times a day POST OP WEEKS 6+ At your 6-week appointment we will give you a physical therapy referral to focus on a core stabilization and strengthening program. You should also work on leg & buttock strengthening, hamstring & quadriceps stretching, and continue a low impact aerobic activity program such as swimming, walking, or riding a stationary bicycle. During the initial 6 weeks after your surgery, you are at the highest risk of re-injuring your spine. You should generally avoid BLT's (bending, lifting and twisting combination motions) and follow the above guidelines to reduce the chance of reinjury. You can anticipate post op appointments in our office at approximately 3 weeks and 6 weeks after your surgery. INCISION CARE: If your incision is not draining you do NOT need to cover it with a dressing. Keep your incision clean, dry and intact. In most cases, we apply skin glue, fredy or sutures to the incision at the time of surgery. This will be like a crust or have the appearance of a scab and will fall off in time on its own. The stitches or fredy need to be removed at 3 weeks post op appointment. You may begin to shower 3 days after surgery (this allows the glue to quinones well). However, please avoid scrubbing the incision site or peeling off any of the skin glue. This will ensure optimal healing of your incision. Also, during this time avoid soaking the incision area in water - this includes swimming pools, hot tubs or baths. No ointments, lotions or oils on the incision until your surgeon allows. Leave fredy, sutures or glue in place. Neurological dysfunction that comes on suddenly can also be a sign of a stroke. Below some common symptoms of a stroke are listed: B - balance difficulty such as sudden onset walking or leaning to one side - NEW E - eye problem such as sudden double vision or trouble seeing on one side - NEW F - Facial weakness or numbness on one side - NEW A - Arm or leg weakness or numbness on one side - NEW S - Slurred speech or difficulty with word finding - NEW T - Time is BRAIN! Call 911 as soon as you recognize these symptoms Diet: Consume a regular diet rich in vegetables and lean protein such as chicken or fish. You should consume in a ratio of approximately 20% fats|40% carbohydrates|40%protein. Vegetables, sweet potatoes, brown rice or quinoa are examples of good carbohydrates. Chips, white bread, cookies and sweets/sugar are examples of bad carbohydrates. Limit your bad carbs, go wild with good carbs. "Life's Simple 7" Guidelines as per [place] [employer] These will help you reclaim your life after surgery and veterinarian helper in your recovery, keeping in mind your restrictions. (1) Get Active. Physical activity can help people lose weight, control high blood pressure and cholesterol, feel emotionally better, and sleep better. (2) Control Cholesterol. Avoid a diet high in saturated fat, trans fat, & cholesterol. Limit whole milk & cream, ice cream, butter, egg yolks, processed meats (like sausage and hot dogs), and fatty meats. Choose healthy foods that are low in saturated fat, trans fat and cholesterol which include: Fruits and vegetables, fiber rich grain products (like whole grain pasta and brown rice), lean meat such as chicken, fish, nuts, seeds, and legumes. (3) Eat Better. Eat small portions. Shop at the grocery with a list and do not stray from it. Tips for a healthy diet include: Limit sodium intake to less than 1500mg daily, avoid prepackaged, processed, and fast foods, choose a diet rich in fruits, vegetables, and whole grain, high fiber foods, and limit saturated & cholesterol in your diet. (4) Manage Blood Pressure. If you have high blood pressure, you should have a cuff at home so that you can check your blood pressure regularly. Be sure you have a good cuff. An arm one is generally better than a wrist one. Bring the cuff to a doctor's appointment to validate that the measurements that your cuff are taking are accurate. Take your blood pressure twice daily when you are sitting down and relaxing. Record the numbers in a log and bring this log with you to your doctors' appointments. (5) Lose Weight if your BMI is above 25. A healthy BMI is between 19-25. To calculate Your BMI, you may use a Standard BMI Calculator on the NIH BMI website: <www.nhlbi.nih.gov/guidelines/obesity/BMI/bmicalc.htm>. Weigh oneself daily. If you are overweight, set a goal to lose weight. A pound a week loss if needed is a good target. (6) Reduce Blood Sugar. Limit foods and liquids with "added sugars." (Added sugars include sucrose, fructose, glucose, maltose, dextrose, high fructose corn syrup, corn syrup, concentrated fruit juice and honey). (7) Stop Smoking. If you smoke, quitting smoking is one of the best things that you can do for your health. Smoking increases your risk of heart attack, stroke, and peripheral vascular disease, which is a build-up of plaque in your arteries. Please discard all the cigarettes and lighters in your house. Have a plan for what you will do when you have the urge to smoke. Direct and second- hand smoke shortens your life as well as the lives of your family, friends and others around you. For your health and the health of those around you, please consider quitting! Proper Bending Body Mechanics: Maintain a wide stance with one foot slightly in front of the other. Keep your back straight. Bend utilizing the strength in your hips and knees. Do not bend at the waist. Maintain the lifted object at your waist-level close to your body. Avoid lifting weight that causes immediately pain or pain anywhere in the body afterwards. Smoking/Nicotine If there was ever one thing that you could do to increase your overall health, decrease your risk of cardiovascular problems by about 39% the second you make the choice, it is to STOP SMOKING. Your body's most instant gratification is the second you stop smoking. We have all heard the studies, read the articles but it is true, smoking is extremely bad for your overall health, and moreover it is detrimental to your bone health. Nicotine, IN ANY FORM, kills bone cells, prevents your body from healing fractures, and significantly prolongs healing after surgery. In spine surgery specifically, it increases your risk of not healing your bones to create a fusion and increases your risk of having a revision surgery due to this up to 60%. I know it is hard. I know it feels impossible. But there are ways. Take control of your life. We are here to help you through it. And when you are ready, ask us and we can direct you to help if you desire. Use the START Plan to Quit Smoking (please visit the Helpguide.org website listed below for more information): S = Set a quit date. Choose a date within the next 2 weeks, so you have enough time to prepare without losing your motivation to quit. If you mainly smoke at work, quit on the weekend, so you have a few days to adjust to the change. T = Tell family, friends, and co-workers that you plan to quit. Let your friends and family in on your plan to quit smoking and tell them you need their support and encouragement to stop. Look for a quit dacia who wants to stop smoking as well. You can help each other get through the rough times. A = Anticipate and plan for the challenges you'll face while quitting. Most people who begin smoking again do so within the first 3 months. You can help yourself make it through by preparing ahead for common challenges, such as nicotine withdrawal and cigarette cravings. R = Remove cigarettes and other tobacco products from your home, car, and work. Throw away all your cigarettes (no emergency pack!), lighters, ashtrays, and matches. Wash your clothes and freshen up anything that smells like smoke. Shampoo your car, clean your drapes and carpet, and steam your furniture. T = Talk to your doctor about getting help to quit. Your doctor can prescribe medication to help with withdrawal and suggest other alternatives. If you can't see a doctor, you can get many products over the counter at your local pharmacy or grocery store, including the nicotine patch, nicotine lozenges, and nicotine gum. Resources for Quitting Smoking: <https:// w.[place].gov/documents/[facility]/Quit_Tobacco_Resources_for_patients_313480_7.pdf> Supplementation: Take recommended dosages of Vitamin D and Calcium to help fortify your bones and help them to heal. See your health maintenance packet for dosages and recommended levels. DVT/VTE prophylaxis: You will be given compression stockings from the hospital. Wear these daily for the first two weeks after surgery. You may take them off at night. You may be prescribed a medication to help thin your blood. Take this as directed. If you are not prescribed this medication, early and frequent ambulation has been shown to be the best prophylaxis to deep vein thrombosis and sequelae related to this event. Discharge Disposition: HOME SELF-CARE
== END 2024-09-01 11:16 | disposition home or self-care (01) ==
LOC: OR 10:00 → 4SSUR 14:35 → OR 09-01 11:16
PROVIDERS: ATTEND Orthopaedic Surgery
DX: M50.121 Cervical disc disorder at C4-C5 level with radiculopathy (principal); M48.02 Spinal stenosis, cervical region; E11.9 Type 2 diabetes mellitus without complications; K21.9 Gastro-esophageal reflux disease without esophagitis; E78.5 Hyperlipidemia, unspecified; G43.909 Migraine, unspecified, not intractable, without status migrainosus; E04.9 Nontoxic goiter, unspecified; J44.9 Chronic obstructive pulmonary disease, unspecified; F17.210 Nicotine dependence, cigarettes, uncomplicated; Z79.899 Other long term (current) drug therapy; Z79.84 Long term (current) use of oral hypoglycemic drugs; Z79.1 Long term (current) use of non-steroidal anti-inflammatories (NSAID); Z79.51 Long term (current) use of inhaled steroids; Z90.89 Acquired absence of other organs; Z90.49 Acquired absence of other specified parts of digestive tract; Z90.710 Acquired absence of both cervix and uterus; Z98.890 Other specified postprocedural states; Z88.2 Allergy status to sulfonamides; Z88.8 Allergy status to other drugs, medicaments and biological substances; Z88.1 Allergy status to other antibiotic agents
CPT/HCPCS: 22551; 22552; 22853 ×2; 20930; 20936; 72040; J2250; J0360; J0690; J2405; J1171